=== PATIENT | male | born 1985 | race Caucasian/White ===

== ENCOUNTER 2016-07-10 12:17 | Emergency (ER) | payer SELFPAY | END 2016-07-10 14:20 | LOC: ED 12:17 | DX: S90.31XA Contusion of right foot, initial encounter (principal); X58.XXXA Exposure to other specified factors, initial encounter; Y93.89 Activity, other specified; Y99.8 Other external cause status; Y92.009 Unspecified place in unspecified non-institutional (private) residence as the place of occurrence of the external cause ==

== ENCOUNTER 2017-01-14 21:00 | Emergency (ER) | payer SELFPAY ==
[~2017-01-14] VITALS: Ht 182.9 cm; Wt 71.5 kg
[2017-01-14 21:02] VITALS: BP 123/76
== END 2017-01-14 22:13 | disposition home or self-care (01) ==
LOC: ED 22:07
DX: M23.51 Chronic instability of knee, right knee (principal)
CPT/HCPCS: 99284

== ENCOUNTER 2017-01-17 21:01 | Emergency (ER) | payer SELFPAY ==
[~2017-01-17] VITALS: Ht 182.9 cm; Wt 74.4 kg
[2017-01-17] MEDS ORDERED: KETOROLAC 30 MG/1 ML IM ONE (21:30)
[2017-01-17] MEDS ORDERED: KETOROLAC 30 MG/1 ML ONE (21:30)
[2017-01-17 22:30] VITALS: BP 101/62
== END 2017-01-17 22:38 | disposition home or self-care (01) ==
LOC: ED 22:35
DX: R07.89 Other chest pain (principal)
CPT/HCPCS: 71020; 93005; 96372; 99284; J1885

== ENCOUNTER 2017-01-24 00:01 | Emergency (ER) | payer MEDICAID, OTHER ==
[~2017-01-24] VITALS: Ht 182.9 cm; Wt 70.9 kg
[2017-01-24 03:47] VITALS: BP 129/79
== END 2017-01-24 03:49 | disposition home or self-care (01) ==
LOC: ED 01:33
DX: B34.9 Viral infection, unspecified (principal)
CPT/HCPCS: 71020; 93005; 99284

== ENCOUNTER 2017-01-26 22:33 | Emergency (ER) | payer MEDICAID ==
[~2017-01-26] VITALS: Ht 182.9 cm; Wt 70.0 kg
[2017-01-26 22:35] VITALS: BP 130/91
== END 2017-01-26 23:36 | disposition home or self-care (01) ==
LOC: ED 23:30
DX: J20.8 Acute bronchitis due to other specified organisms (principal); B96.89 Other specified bacterial agents as the cause of diseases classified elsewhere
CPT/HCPCS: 99283